=== PATIENT | male | born 1965 | race Hispanic/Latino ===

== ENCOUNTER 2018-04-04 16:42 | Emergency (ER) | payer MEDICAID, OTHER ==
[2018-04-04 16:49] VITALS: TEMP 98.1; BMI 21.4
--- NOTE | 2018-04-04 17:39 | C.PDOC ---
History Of Present Illness 52 year old male with PMH of alcohol abuse presents to the emergency department by EMS complaining of right hip pain and right knee pain x 2 weeks. Patient was picked up by EMS sitting outside the local [facility]. Patient is homeless. He states that he fell two weeks ago under the influence of alcohol and has had right hip pain since, worse with movement. Patient has been ambulating without issue with his walker since the fall. Also complaining of mild Left sided neck pain and bilateral foot pain. Denies any alcohol or drug use today. Patient is unkept but alert, oriented, and able to answer questions appropriately. Denies fevers, chills, headache, back pain, cough, shortness of breath, chest pain, numbness, weakness, paresthesias, difficulty speaking, difficulty walking, abdominal pain, nausea, vomiting. Questionable history of being seen at an unknown hospital last night for the same complaint, patient unable to recall imaging performed or results. Chief Complaint (Nursing): Lower Extremity Problem/Injury History Per: Patient History/Exam Limitations: no limitations Onset/Duration Of Symptoms: Days Past Medical History Reviewed: Historical Data, Nursing Documentation, Vital Signs Vital Signs: Last Vital Signs Temp 98.1 F 04/04/18 16:49 Pulse 92 H 04/04/18 16:49 Resp 18 04/04/18 16:49 BP 126/81 04/04/18 16:49 Pulse Ox 99 04/04/18 16:49 - Medical History PMH: Fractures, Pneumonia Family History: States: Unknown Family Hx - Social History Hx Tobacco Use: No Hx Alcohol Use: Yes Hx Substance Use: No - Immunization History Hx Tetanus Toxoid Vaccination: No Hx Influenza Vaccination: No Hx Pneumococcal Vaccination: No Review Of Systems Except As Marked, All Systems Reviewed And Found Negative. Constitutional: Negative for: Fever, Chills, Sweats, Weakness Eyes: Negative for: Vision Change ENT: Negative for: Ear Pain, Nose Pain, Nose Congestion, Mouth Pain, Mouth Swelling, Throat Pain, Throat Swelling Cardiovascular: Negative for: Chest Pain, Palpitations, Orthopnea, Edema, Light Headedness Respiratory: Negative for: Cough, Shortness of Breath Gastrointestinal: Negative for: Nausea, Vomiting, Abdominal Pain Genitourinary: Negative for: Dysuria, Frequency Musculoskeletal: Positive for: Neck Pain (left ), Leg Pain (right hip, right knee), Foot Pain (bilateral feet and digits). Negative for: Shoulder Pain, Arm Pain, Back Pain, Hand Pain Skin: Positive for: Other (peeling skin bilateral feet and toes). Negative for: Rash Neurological: Negative for: Weakness, Numbness, Incoordination, Change in Speech, Confusion, Seizures, Altered Mental Status, Headache, Dizziness Psych: Negative for: Anxiety, Depression, Suicidal ideation, Withdrawal Physical Exam - Physical Exam Appears: Non-toxic, No Acute Distress, Unkempt Skin: Normal Color, Warm, Dry, No Rash, No Ecchymosis, Other (well-healing abrasion to right knee, no signs of infection.) Head: Atraumatic, Normacephalic, No Tenderness, No Swelling, No Abrasion, No Laceration Eye(s): bilateral: Normal Inspection, PERRL, EOMI Ear(s): Bilateral: Normal Nose: Normal Oral Mucosa: Moist Tongue: Normal Appearing Lips: Normal Appearing Throat: Normal, No Erythema, No Exudate, No Drooling Neck: Normal, Decreased ROM (secondary to pain), Trachea Midline, No Midline Ce rvical Tenderness, Paracervical Tenderness (left sided), No Step Off Deformity Lymphatic: Normal Exam, No Adenopathy Chest: Symmetrical, No Deformity, No Tenderness, No Ecchymosis Cardiovascular: Rhythm Regular Respiratory: Normal Breath Sounds Gastrointestinal/Abdominal: Normal Exam, Bowel Sounds, Soft, No Tenderness, No Distention, No Guarding, No Ascites Back: Normal Inspection, No CVA Tenderness, No Vertebral Tenderness, No Decreased ROM, No Paraspinal Tenderness Extremity: Normal ROM, Tenderness (right lateral hip, right knee medially and laterally across joint line), No Pedal Edema, No Calf Tenderness, Capillary Refill (<2s), No Deformity, No Swelling, Other (macerated skin between digits on bilateral feet suspicious for tinea pedis, no erythema or signs of infection. ) Extremity: Left: Atraumatic, Right: Other (well healing abrasion to right knee), Bilateral: No Pedal Edema, Normal Color And Temperature, Normal ROM Pulses: Left Radial: Normal, Right Radial: Normal, Left Dorsalis Pedis: Normal, Right Dorsalis Pedis: Normal Neurological/Psych: Oriented x3, Normal Speech, Normal Cognition, Normal Cranial Nerves, Normal Motor, Normal Sensation, Normal Reflexes Gait: Steady ED Course And Treatment O2 Sat by Pulse Oximetry: 99 Medical Decision Making Medical Decision Making: Initial Plan: --Head CT w/o contrast --Cervical Spine CT w/o contrast --Right knee xray --Right hip xray Right Knee XR: Read by and Dr. Lopes as negative for fracture. Moderate degenerative changes. Right Hip XR: Read by and Dr. Lopes as negative for fracture. Moderate degenerative changes. CT Head: FINDINGS: HEMORRHAGE: No intracranial hemorrhage. BRAIN: Diffuse atrophy with prominence of the ventricles and sulci noted. No mass ef fect or edema. Dense intracranial atherosclerotic calcification. Bilateral chronic appearing bilateral basal ganglia and right thalamus infarcts. Moderate scattered periventricular and subcortical white matter hypodensities, which are nonspecific, but often seen with chronic microvascular ischemic disease. Please note that MRI with diffusion imaging is more sensitive in the detection of acute ischemic event. VENTRICLES: No hydrocephalus. CALVARIUM: Unremarkable. PARANASAL SINUSES: Unremarkable as visualized. No significant inflammatory changes. MASTOID AIR CELLS: Unremarkable as visualized. No inflammatory changes. OTHER FINDINGS: Deviated nasal septum. Opacification of the left greater than right external auditory canals, likely cerumen. 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 Moderate scattered nonspecific white matter changes. Generalized atrophy. CT Cervical Spine: CLINICAL HISTORY: S/p fall, intoxicated. neck pain TECHNIQUE: Multiple axial images were obtained through the cervical spine. Images were also reconstructed in coronal and sagittal planes. 395 mGy-cm FINDINGS: VERTEBRAE: There is severe levoscoliosis in the lower cervical spine. There is straightening of the cervical spine with loss of normal cervical lordosis. There is degenerative 3 mm anterior listhesis C4 on C5 and 2 mm anterior listhesis of C5 on C6. No acute fracture or traumatic anterior listhesis. The craniocervical Junction is normal. There is mild degenerative osteoarthritis at the Atlantoaxial joint. DISCS/SPINAL CANAL/NEURAL FORAMINA: There is multi-level disc disease due to combination osteophyte complex covert ebril joint hypertrophy, multi-level facet arthropathy at C3-4, C4-5, and C5-6. PARASPINAL SOFT TISSUES: The paraspinal soft tissues are normal. OTHER FINDINGS: No prevertebral soft tissue thickening. No apical pneumothorax. By apical paraseptal emphysema. IMPRESSION: No acute fracture or traumatic anterior listhesis Read by: Angeles Salas MD 04/05/18; 0843 Impression: Fall, Alcohol Abuse, Osteoarthritis, Tinea Pedis Plan: --Ketoconazole Cream --Increase fluids --Followup with clinic within 2 days --Return to ER if symptoms worsen Disposition Discussed With DrOlivier: Beatriz Aceves Comment: Radiologist called recommending repeat pelvis imaging due to rotation. Xrays read by Dr. Lopes as negative for fracture. Counseled Patient/Family Regarding: Studies Performed, Diagnosis, Need For Followup, Rx Given - Disposition Referrals: at [facility] [Outside] Disposition: HOME/ ROUTINE Disposition Time: 18:59 Condition: GOOD Additional Instructions: --Apply Ketoconazole Cream to toes twice daily for 4 weeks --Increase fluids --Stop alcohol consumption --Followup with clinic within 2 days --Return to ER if symptoms worsen Prescriptions: Ketoconazole 2% Cr [Nizoral] 1 appl TP Q12H #1 tube Instructions: Athlete's Foot Forms: [facility] (Venezuelan) - Clinical Impression Clinical Impression: Fall, Tinea pedis, Muscle strain
--- NOTE | 2018-04-04 18:44 | CT ---
Date of service: 04/04/2018 PROCEDURE: CT HEAD WITHOUT CONTRAST. HISTORY: head injury, fall, intoxicated COMPARISON: Noncontrast head CT performed 11/25/15 TECHNIQUE: Axial computed tomography images were obtained through the head/brain without intravenous contrast. Radiation dose: Total exam DLP = 1079.04 mGy-cm. This CT exam was performed using one or more of the following dose reduction techniques: Automated exposure control, adjustment of the mA and/or kV according to patient size, and/or use of iterative reconstruction technique. FINDINGS: HEMORRHAGE: No intracranial hemorrhage. BRAIN: Diffuse atrophy with prominence of the ventricles and sulci noted. No mass effect or edema. Dense intracranial atherosclerotic calcification. Bilateral chronic appearing bilateral basal ganglia and right thalamus infarcts. Moderate scattered periventricular and subcortical white matter hypodensities, which are nonspecific, but often seen with chronic microvascular ischemic disease. Please note that MRI with diffusion imaging is more sensitive in the detection of acute ischemic event. VENTRICLES: No hydrocephalus. CALVARIUM: Unremarkable. PARANASAL SINUSES: Unremarkable as visualized. No significant inflammatory changes. MASTOID AIR CELLS: Unremarkable as visualized. No inflammatory changes. OTHER FINDINGS: Deviated nasal septum. Opacification of the left greater than right external auditory canals, likely cerumen. 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 Moderate scattered nonspecific white matter changes. Generalized atrophy.
--- NOTE | 2018-04-04 19:05 | RAD ---
PROCEDURE: Right Knee Radiographs. HISTORY: Contusion COMPARISON: None available FINDINGS: BONES: No acute displaced fracture. Degenerative changes including tenting of the intercondylar notch. JOINTS: No dislocation. JOINT EFFUSION: No significant joint effusion. OTHER FINDINGS: Vascular calcifications. IMPRESSION: Degenerative changes. No acute displaced fracture, dislocation, or significant joint effusion identified. If symptoms persist, or if there is continued clinical concern, x-ray follow-up in 7-10 days should be considered.
[2018-04-04 20:42] VITALS: BP 123/54; PULSE 84; RESP 20
--- NOTE | 2018-04-05 08:32 | RAD ---
PROCEDURE: Right Hip Radiographs. Two views HISTORY: hip pain, fall, intoxicated COMPARISON: None. FINDINGS: BONES: No evidence for acute displaced fracture. JOINTS: Moderate narrowing of the bilateral hip joints with subchondral sclerosis. Osteitis pubis. Degenerative changes in the lower lumbar spine. SOFT TISSUES: Normal. OTHER FINDINGS: Bowel gas limits evaluation of the sacrum. Vascular calcifications. IMPRESSION: Negative acute. If pain persists, consider MRI.
--- NOTE | 2018-04-05 08:47 | CT ---
Date of service: 04/04/2018 PROCEDURE: CT Cervical Spine without contrast HISTORY: neck pain, fall, intoxicated COMPARISON: None available. TECHNIQUE: Axial computed tomography images were obtained of the cervical spine without the use of intravenous contrast. Coronal and sagittal reformatted images were created and reviewed. Radiation dose: Total exam DLP = 395.15 mGy-cm. This CT exam was performed using one or more of the following dose reduction techniques: Automated exposure control, adjustment of the mA and/or kV according to patient size, and/or use of iterative reconstruction technique. FINDINGS: VERTEBRAE: There is severe levoscoliosis in the lower cervical spine. There straightening of the cervical spine with loss of normal cervical lordosis. There is degenerative 3 mm anterior listhesis of C4 on C5 and 2 mm anterior listhesis of C5 on C6. No acute fracture or traumatic anterior listhesis. The craniocervical junction is normal. There is mild degenerative osteoarthrosis at the atlantoaxial joint. DISCS/SPINAL CANAL/NEURAL FORAMINA: There is multilevel degenerative disc disease due to combination of disc osteophyte complexes, uncovertebral joint hypertrophy and advanced multilevel facet arthropathy at C3-4 C4-5 and C5-6. PARASPINAL SOFT TISSUES: The paraspinous soft tissues are normal. OTHER FINDINGS: No prevertebral soft tissue thickening. No apical pneumothorax. There is biapical paraseptal emphysema. IMPRESSION: No acute fracture or traumatic anterior listhesis. A preliminary report was provided by [employer].
[2018-04-05 22:46] VITALS: O2SAT 99
== END 2018-04-04 20:42 | disposition home or self-care (01) ==
LOC: C.ER 16:42
DX: B35.3 Tinea pedis (principal); T14.8XXA Other injury of unspecified body region, initial encounter; W19.XXXA Unspecified fall, initial encounter; Y92.9 Unspecified place or not applicable; Z59.0 Homelessness

== ENCOUNTER 2018-04-05 05:18 | Emergency (ER) | payer OTHER ==
[2018-04-05 05:18] VITALS: BMI 21.4
--- NOTE | 2018-04-05 06:17 | C.PDOC ---
Addendum entered and electronically signed by Bisi Garcia PA 04/05/18 11:11: Addendum Addendum: 04/05/18 11:10 pt was given breakfast, too0k shower and discharged with intermediate information. Addendum entered and electronically signed by Bisi Garcia PA 04/05/18 11:09: Disposition Counseled Patient/Family Regarding: Diagnosis, Need For Followup Clinical Impression: Homelessness, Hypothermia associated with environmental change Disposition: HOME/ ROUTINE Disposition Time: 11:08 Condition: IMPROVED Additional Instructions: Please follow up in medical clinic. Avoid cold temperatures for long periods of time. Please go to intermediate. Referrals: [facility] [Outside] Stand Alone Forms: [facility] (Nigerian), General Discharge Instructions Addendum entered and electronically signed by Bisi Garcia PA 04/05/18 07:10: Addendum Addendum: 04/05/18 07:09 received s/o from JAVAN Little to dispo pt after temperature increased, breakfast. Original Note: History Of Present Illness 52 year old male presents to the ER with a complaint of feeling cold. Patient is homeless, he was seen here yesterday for a fall and discharged, he states he spent the night on the streets. In the ER patient has a rectal temperature of 95.5 but otherwise offers no other complaints. Chief Complaint (Nursing): Medical Clearance History Per: Patient History/Exam Limitations: no limitations Onset/Duration Of Symptoms: Hrs Current Symptoms Are (Timing): Still Present Recent travel outside of the [place]: No Past Medical History Reviewed: Historical Data, Nursing Documentation, Vital Signs Vital Signs: Last Vital Signs Temp 95.5 F L 04/05/18 05:30 Pulse 94 H 04/05/18 05:30 Resp 22 04/05/18 05:30 BP 129/75 04/05/18 05:30 Pulse Ox 95 04/05/18 05:30 - Medical History PMH: Fractures, Pneumonia Family History: States: Unknown Family Hx - Social History Hx Tobacco Use: No Hx Alcohol Use: Yes Hx Substance Use: No - Immunization History Hx Tetanus Toxoid Vaccination: No Hx Influenza Vaccination: No Hx Pneumococcal Vaccination: No Review Of Systems Constitutional: Positive for: Other (Cold). Negative for: Fever, Chills Cardiovascular: Negative for: Chest Pain, Palpitations Respiratory: Negative for: Cough, Shortness of Breath Gastrointestinal: Negative for: Nausea, Vomiting Skin: Negative for: Rash Neurological: Negative for: Weakness, Numbness Physical Exam - Physical Exam Appears: Non-toxic Skin: Normal Color, Warm, Dry Head: Atraumatic, Normacephalic Eye(s): bilateral: Normal Inspection Oral Mucosa: Moist Neck: Normal, Supple Chest: Symmetrical, No Tenderness Cardiovascular: Rhythm Regular Respiratory: Normal Breath Sounds, No Rales, No Rhonchi, No Wheezing Gastrointestinal/Abdominal: Soft, No Tenderness Extremity: Normal ROM (x4) Neurological/Psych: Oriented x3, Normal Speech ED Course And Treatment O2 Sat by Pulse Oximetry: 95 (Room air) Pulse Ox Interpretation: Normal Progress Note: Patient placed in bearhugger and blankets in order to raise body temperature. Disposition - Disposition Referrals: Non [facility] Provider, [Primary Care Provider] - Disposition: HOME/ ROUTINE Disposition Time: 07:00 Condition: IMPROVED Forms: [facility] (Nigerian) - Clinical Impression Clinical Impression: Homelessness, Hypothermia associated with environmental change - PA / [employer] / Resident Statement MD/DO has reviewed & agrees with the documentation as recorded. - Scribe Statement The provider has reviewed the documentation as recorded by the Scribe Valentino Cadet All medical record entries made by the Scribe were at my direction and perso eli dictated by me. I have reviewed the chart and agree that the record accurately reflects my personal performance of the history, physical exam, medical decision making, and the department course for this patient. I have also personally directed, reviewed, and agree with the discharge instructions and disposition. Physician Patient Turnover Patient Signed Over To: Bisi Garcia Handoff Comments: re-eval, breakfast, hot tea, dispo
[2018-04-05 06:56] VITALS: O2SAT 99
[2018-04-05 10:17] VITALS: PULSE 86; RESP 18
[2018-04-05 10:18] VITALS: BP 116/69; TEMP 98.5
== END 2018-04-05 11:13 | disposition home or self-care (01) ==
LOC: C.ER 05:18 → SUPCPDRO 05:18 → C.ER 11:13
DX: T68.XXXA Hypothermia, initial encounter (principal); X31.XXXA Exposure to excessive natural cold, initial encounter; Z59.0 Homelessness